=== PATIENT | male | born 1950 ===

== ENCOUNTER 2021-10-31 08:31 | Inpatient (IN) ==
[2021-10-31] MEDS ORDERED: Iopamidol - 370 500 ML MLS IVP ONE (08:48)
[2021-10-31 10:07] LABS: Hematocrit 46.3 % (37.5-50.1); Mean Corpuscular HGB Conc 32.4 g/dL (31.6-35.5); Mean Corpuscular Hemoglobin 30.2 pg (28.0-33.3); Mean Corpuscular Volume 93.3 fL (83.0-100.0); Mean Platelet Volume 9.6 fL (9.4-12.4); Platelet Count 284 K/mcL (140-400); Red Blood Count 4.96 M/mcL (4.19-5.50); Red Cell Distribution Width 15.7 % (11.5-14.5)
[2021-10-31 10:11] LABS: White Blood Count 30.8 K/mcL (4.3-11.1)
[2021-10-31] MEDS ORDERED: Piperacillin/Tazobactam 3.375 GM in 0.9 % Sodium Chloride Mini Bag 100 ML IVPB ONE (10:18)
[2021-10-31] MEDS ORDERED: 0.9 % Sodium Chloride 1,000 ML IVC ONE (10:18)
[2021-10-31] MEDS ORDERED: Vancomycin 1,250 MG/262.5 ML IV.SOLN IVPB ONE (10:18)
[2021-10-31 10:19] LABS: Lymphocytes # 3.7 K/mcL (0.6-4.6); Monocytes # 2.5 K/mcL (0.0-1.3); Neutrophils # 24.6 K/mcL (1.6-8.9); Platelet Estimate Normal (Normal); Reactive Lymphocytes Present (Not Present)
[2021-10-31 10:20] LABS: Poikilocytosis 1+ (Not Present)
[2021-10-31 10:29] LABS: Albumin 3.4 g/dL (3.5-5.7); Albumin/Globulin Ratio 0.6 (1.1-2.2); Bilirubin,Direct 0.1 mg/dL (0.0-0.2); Bilirubin,Indirect 0.7 mg/dL (0.0-1.0); Bilirubin,Total 0.8 mg/dL (0.3-1.0); Calcium 9.9 mg/dL (8.6-10.3); Globulin 5.6 g/dL (2.4-3.5); Potassium 4.1 mEq/L (3.5-5.1)
[2021-10-31] MEDS ORDERED: Naloxone 0.4 MG/ML INJ IVP PRN (14:51)
[2021-10-31] MEDS ORDERED: Ondansetron 4 MG/2 ML VIAL IVP PRN (18:25)
[2021-10-31] MEDS ORDERED: GuaiFENesin Liq 200 MG/10 ML UDC PO PRN (18:28)
[2021-10-31] MEDS: *HR* LORazepam 0.5 MG TABLET PO SCH (21:27)
[2021-10-31] MEDS: Baclofen 10 MG TABLET PO SCH (21:27)
[2021-10-31] MEDS: Divalproex Sodium 125 MG Sprinkle Capsule (DR) PO SCH (21:27)
[2021-10-31] MEDS: Sennosides 8.6 MG TABLET PO SCH (21:27)
[2021-10-31] MEDS: Melatonin 3 MG TABLET PO SCH (21:27)
[2021-10-31] MEDS: *HR* Heparin 5,000 UNIT/ML VIAL SQ SCH (21:27)
[2021-10-31] MEDS: QUEtiapine Fumarate 25 MG TABLET PO SCH (21:27)
[2021-10-31] MEDS: Chlorhexidine Rinse 15 ML MOUTHWASH MM SCH (22:23)
[2021-11-01] MEDS: Piperacillin/Tazobactam 3.375 GM in 0.9 % Sodium Chloride Mini Bag 100 ML IVPB SCH ×3 (00:13→16:04)
[2021-11-01] MEDS: *HR* Heparin 5,000 UNIT/ML VIAL SQ SCH ×3 (05:42→20:03)
[2021-11-01] MEDS: QUEtiapine Fumarate 25 MG TABLET PO SCH ×2 (08:39→20:01)
[2021-11-01] MEDS: polyethylene glycoL 3350 17 GM POWD.PACK PO SCH (08:40)
[2021-11-01] MEDS: Chlorhexidine Rinse 15 ML MOUTHWASH MM SCH ×4 (08:40→22:40)
[2021-11-01] MEDS: Baclofen 10 MG TABLET PO SCH ×2 (08:40→20:02)
[2021-11-01] MEDS: Sennosides 8.6 MG TABLET PO SCH ×2 (08:40→20:01)
[2021-11-01] MEDS: *HR* LORazepam 0.5 MG TABLET PO SCH ×2 (08:43→20:04)
[2021-11-01] MEDS: Divalproex Sodium 125 MG Sprinkle Capsule (DR) PO SCH ×3 (09:11→20:01)
[2021-11-01 10:55] LABS: Basophils % 0.3 %
[2021-11-01 10:57] LABS: Basophils # 0.1 K/mcL (0.0-0.2); Hematocrit 45.3 % (37.5-50.1); Immature Granulocytes % 1.5 % (0-4); Lymphocytes % 7.4 %; Mean Corpuscular HGB Conc 30.9 g/dL (31.6-35.5); Mean Corpuscular Hemoglobin 29.8 pg (28.0-33.3); Mean Corpuscular Volume 96.4 fL (83.0-100.0); Monocytes # 2.6 K/mcL (0.0-1.3); Monocytes % 9.7 %; Neutrophils # 21.7 K/mcL (1.6-8.9); Platelet Count 281 K/mcL (140-400); Red Cell Distribution Width 15.9 % (11.5-14.5); Segmented Neutrophils % 81.1 %; White Blood Count 26.7 K/mcL (4.3-11.1)
[2021-11-01 11:04] LABS: Calcium 9.8 mg/dL (8.6-10.3); Potassium 3.9 mEq/L (3.5-5.1)
[2021-11-01] MEDS: Vancomycin 1,250 MG/262.5 ML IV.SOLN IVPB SCH (11:35)
[2021-11-01] MEDS ORDERED: Vancomycin 1,250 MG/262.5 ML IV.SOLN IVPB SCH (12:00)
[2021-11-01 14:34] LABS: Platelet Estimate Normal (Normal)
[2021-11-01] MEDS: Melatonin 3 MG TABLET PO SCH (20:01)
[2021-11-01] MEDS: Mirtazapine 15 MG TABLET PO SCH (20:03)
[2021-11-02] MEDS: Piperacillin/Tazobactam 3.375 GM in 0.9 % Sodium Chloride Mini Bag 100 ML IVPB SCH ×3 (00:04→18:34)
[2021-11-02] MEDS: *HR* Heparin 5,000 UNIT/ML VIAL SQ SCH ×3 (05:13→21:25)
[2021-11-02 08:07] LABS: Basophils # 0.1 K/mcL (0.0-0.2); Basophils % 0.3 %; Eosinophils # 0.1 K/mcL (0.0-0.6); Eosinophils % 0.6 %; Hematocrit 41.6 % (37.5-50.1); Hemoglobin 13.3 g/dL (12.9-16.9); Immature Granulocytes % 0.8 % (0-4); Lymphocytes # 2.3 K/mcL (0.6-4.6); Lymphocytes % 10.8 %; Mean Corpuscular Hemoglobin 30.3 pg (28.0-33.3); Mean Corpuscular Volume 94.8 fL (83.0-100.0); Mean Platelet Volume 9.9 fL (9.4-12.4); Monocytes # 1.8 K/mcL (0.0-1.3); Monocytes % 8.5 %; Neutrophils # 17.1 K/mcL (1.6-8.9); Platelet Count 257 K/mcL (140-400); Red Blood Count 4.39 M/mcL (4.19-5.50); Red Cell Distribution Width 15.9 % (11.5-14.5); White Blood Count 21.6 K/mcL (4.3-11.1)
[2021-11-02 08:26] LABS: Calcium 8.9 mg/dL (8.6-10.3); Potassium 3.3 mEq/L (3.5-5.1)
[2021-11-02] MEDS: QUEtiapine Fumarate 25 MG TABLET PO SCH ×2 (08:33→21:24)
[2021-11-02] MEDS: Chlorhexidine Rinse 15 ML MOUTHWASH MM SCH ×4 (08:33→21:50)
[2021-11-02] MEDS: *HR* LORazepam 0.5 MG TABLET PO SCH ×2 (08:33→21:25)
[2021-11-02] MEDS: Baclofen 10 MG TABLET PO SCH ×2 (08:33→21:24)
[2021-11-02] MEDS: polyethylene glycoL 3350 17 GM POWD.PACK PO SCH ×2 (08:33→08:43)
[2021-11-02] MEDS: Divalproex Sodium 125 MG Sprinkle Capsule (DR) PO SCH ×3 (08:33→21:24)
[2021-11-02] MEDS: Sennosides 8.6 MG TABLET PO SCH ×2 (08:33→21:25)
[2021-11-02] MEDS ORDERED: Potassium Chloride Elixir 20 MEQ/15 ML UDC PO ONE (09:46)
[2021-11-02] MEDS: D5% in Water 1,000 ML IVC SCH (12:23)
[2021-11-02] MEDS: Vancomycin 1,250 MG/262.5 ML IV.SOLN IVPB SCH (14:55)
[2021-11-02] MEDS: Vancomycin 1,500 MG/265 ML IV.SOLN IVPB SCH (16:13)
[2021-11-02 16:31] LABS: BUN/Creatinine Ratio 42 (6-26); Blood Urea Nitrogen 37 mg/dL (8-23); Calcium 9.1 mg/dL (8.6-10.3); Carbon Dioxide 27 mEq/L (23-29); Chloride 113 mEq/L (98-107); Glucose 110 mg/dL (70-105); Osmolality,Calculated 317 (280-300); Potassium 3.7 mEq/L (3.5-5.1); Sodium 149 mEq/L (136-145)
[2021-11-02] MEDS: Mirtazapine 15 MG TABLET PO SCH (18:34)
[2021-11-02] MEDS: Melatonin 3 MG TABLET PO SCH (21:24)
[2021-11-02 21:34] LABS: BUN/Creatinine Ratio 39 (6-26); Blood Urea Nitrogen 32 mg/dL (8-23); Carbon Dioxide 28 mEq/L (23-29); Chloride 114 mEq/L (98-107); Glucose 116 mg/dL (70-105); Osmolality,Calculated 314 (280-300); Potassium 4.2 mEq/L (3.5-5.1); Sodium 148 mEq/L (136-145)
[2021-11-03] MEDS: Piperacillin/Tazobactam 3.375 GM in 0.9 % Sodium Chloride Mini Bag 100 ML IVPB SCH ×4 (00:13→23:39)
[2021-11-03] MEDS: *HR* Heparin 5,000 UNIT/ML VIAL SQ SCH ×3 (06:07→21:50)
[2021-11-03] MEDS: D5% in Water 1,000 ML IVC SCH ×2 (09:36→12:45)
[2021-11-03] MEDS: polyethylene glycoL 3350 17 GM POWD.PACK PO SCH (09:37)
[2021-11-03] MEDS: Baclofen 10 MG TABLET PO SCH ×2 (09:39→21:28)
[2021-11-03] MEDS: Divalproex Sodium 125 MG Sprinkle Capsule (DR) PO SCH ×3 (09:39→21:29)
[2021-11-03] MEDS: *HR* LORazepam 0.5 MG TABLET PO SCH ×2 (09:39→21:29)
[2021-11-03] MEDS: QUEtiapine Fumarate 25 MG TABLET PO SCH ×2 (09:39→21:29)
[2021-11-03] MEDS: Sennosides 8.6 MG TABLET PO SCH ×2 (09:39→21:28)
[2021-11-03] MEDS: Chlorhexidine Rinse 15 ML MOUTHWASH MM SCH ×4 (09:40→21:29)
[2021-11-03 10:53] LABS: Basophils # 0.1 K/mcL (0.0-0.2); Basophils % 0.4 %; Eosinophils # 0.2 K/mcL (0.0-0.6); Eosinophils % 1.6 %; Hematocrit 38.2 % (37.5-50.1); Hemoglobin 12.3 g/dL (12.9-16.9); Immature Granulocytes % 0.6 % (0-4); Lymphocytes # 1.6 K/mcL (0.6-4.6); Lymphocytes % 13.6 %; Mean Corpuscular HGB Conc 32.2 g/dL (31.6-35.5); Mean Corpuscular Hemoglobin 30.1 pg (28.0-33.3); Mean Corpuscular Volume 93.4 fL (83.0-100.0); Mean Platelet Volume 9.7 fL (9.4-12.4); Monocytes # 1.2 K/mcL (0.0-1.3); Monocytes % 10.2 %; Neutrophils # 8.8 K/mcL (1.6-8.9); Nucleated Red Blood Cells 0.2 /100 WBC (0); Platelet Count 277 K/mcL (140-400); Red Blood Count 4.09 M/mcL (4.19-5.50); Red Cell Distribution Width 15.7 % (11.5-14.5); Segmented Neutrophils % 73.6 %
[2021-11-03 11:18] LABS: BUN/Creatinine Ratio 34 (6-26); Blood Urea Nitrogen 24 mg/dL (8-23); Calcium 8.5 mg/dL (8.6-10.3); Carbon Dioxide 30 mEq/L (23-29); Chloride 111 mEq/L (98-107); Glucose 107 mg/dL (70-105); Osmolality,Calculated 307 (280-300); Potassium 3.2 mEq/L (3.5-5.1); Sodium 146 mEq/L (136-145)
[2021-11-03] MEDS: Vancomycin 1,500 MG/265 ML IV.SOLN IVPB SCH (16:22)
[2021-11-03] MEDS: Mirtazapine 15 MG TABLET PO SCH (18:10)
[2021-11-03] MEDS: Melatonin 3 MG TABLET PO SCH (21:35)
[2021-11-03] MEDS ORDERED: E-Z-PAQUE (BARIUM SULF) SUSP 1 BOTTLE PO ONE (21:46)
[2021-11-03] MEDS ORDERED: E-Z-HD (BARIUM SULF) SUSPENSION PO ONE (21:46)
[2021-11-04 02:19] LABS: Basophils % 0.3 %; Eosinophils # 0.3 K/mcL (0.0-0.6); Eosinophils % 2.3 %; Hematocrit 37.9 % (37.5-50.1); Hemoglobin 12.1 g/dL (12.9-16.9); Immature Granulocytes % 0.6 % (0-4); Lymphocytes # 2.5 K/mcL (0.6-4.6); Lymphocytes % 20.7 %; Mean Corpuscular HGB Conc 31.9 g/dL (31.6-35.5); Mean Corpuscular Hemoglobin 29.7 pg (28.0-33.3); Mean Corpuscular Volume 93.1 fL (83.0-100.0); Mean Platelet Volume 9.5 fL (9.4-12.4); Monocytes # 1.4 K/mcL (0.0-1.3); Monocytes % 11.3 %; Neutrophils # 7.9 K/mcL (1.6-8.9); Platelet Count 270 K/mcL (140-400); Red Blood Count 4.07 M/mcL (4.19-5.50); Red Cell Distribution Width 15.5 % (11.5-14.5); Segmented Neutrophils % 64.8 %; White Blood Count 12.2 K/mcL (4.3-11.1)
[2021-11-04 02:37] LABS: BUN/Creatinine Ratio 24 (6-26); Blood Urea Nitrogen 18 mg/dL (8-23); Calcium 8.8 mg/dL (8.6-10.3); Carbon Dioxide 33 mEq/L (23-29); Chloride 108 mEq/L (98-107); Glucose 128 mg/dL (70-105); Magnesium 2.1 mg/dL (1.6-2.6); Osmolality,Calculated 302 (280-300); Phosphorous 2.7 mg/dL (2.7-4.5); Potassium 3.9 mEq/L (3.5-5.1); Sodium 144 mEq/L (136-145)
[2021-11-04] MEDS: *HR* Heparin 5,000 UNIT/ML VIAL SQ SCH ×3 (05:13→21:03)
[2021-11-04] MEDS: Piperacillin/Tazobactam 3.375 GM in 0.9 % Sodium Chloride Mini Bag 100 ML IVPB SCH (08:25)
[2021-11-04] MEDS: Baclofen 10 MG TABLET PO SCH ×2 (10:12→21:03)
[2021-11-04] MEDS: QUEtiapine Fumarate 25 MG TABLET PO SCH ×2 (10:13→21:03)
[2021-11-04] MEDS: Sennosides 8.6 MG TABLET PO SCH ×2 (10:13→21:03)
[2021-11-04] MEDS: Divalproex Sodium 125 MG Sprinkle Capsule (DR) PO SCH ×3 (10:13→21:02)
[2021-11-04] MEDS: *HR* LORazepam 0.5 MG TABLET PO SCH ×2 (10:13→21:02)
[2021-11-04] MEDS: Chlorhexidine Rinse 15 ML MOUTHWASH MM SCH ×4 (10:14→21:02)
[2021-11-04] MEDS: polyethylene glycoL 3350 17 GM POWD.PACK PO SCH (10:14)
[2021-11-04] MEDS: D5% in Water 1,000 ML IVC SCH (13:51)
[2021-11-04] MEDS ORDERED: Vancomycin 1,750 MG/517.5 ML IV.SOLN IVPB SCH (16:00)
[2021-11-04] MEDS: Mirtazapine 15 MG TABLET PO SCH (18:24)
[2021-11-04] MEDS: Melatonin 3 MG TABLET PO SCH (21:03)
[2021-11-05 05:22] VITALS: PULSE 59
[2021-11-05] MEDS: *HR* Heparin 5,000 UNIT/ML VIAL SQ SCH (05:27)
[2021-11-05 08:11] VITALS: BP 131/79; TEMP 97.8; O2SAT 98
[2021-11-05] MEDS: *HR* LORazepam 0.5 MG TABLET PO SCH (09:35)
[2021-11-05] MEDS: QUEtiapine Fumarate 25 MG TABLET PO SCH (09:35)
[2021-11-05] MEDS: polyethylene glycoL 3350 17 GM POWD.PACK PO SCH (09:35)
[2021-11-05] MEDS: Sennosides 8.6 MG TABLET PO SCH (09:36)
[2021-11-05] MEDS: Baclofen 10 MG TABLET PO SCH (09:36)
[2021-11-05] MEDS: Chlorhexidine Rinse 15 ML MOUTHWASH MM SCH (09:36)
[2021-11-05] MEDS: Divalproex Sodium 125 MG Sprinkle Capsule (DR) PO SCH (09:36)
[2021-11-05 10:36] LABS: Influenza A PCR Negative (Negative); Influenza B PCR Negative (Negative); Resp. Syncytial Virus PCR Negative (Negative); SARS-CoV-2 by PCR (In House) Negative (Negative)
== END 2021-11-05 14:00 | DRG 872 ==
LOC: EMEROOARM 08:31 → 3ANU 08:31 → SUATTDRO 14:45 → 3ANU 17:32
PROVIDERS: ADMIT Hospitalist; ATTEND Internal Medicine